=== PATIENT | female | born 1940 | race Caucasian/White ===

== ENCOUNTER 2016-10-28 10:52 | Outpatient (CLI) | payer OTHER, MEDICARE ==
--- NOTE | 2016-10-29 13:18 | Mammography Report ---
DIGITAL SCREENING MAMMOGRAM: 10/28/2016 CLINICAL INDICATION: A 76-year-old with family history of breast cancer for screening. COMPARISON: 10/2015, 10/2014, 10/2013, 10/2012, 09/2011, 03/2010, 11/2008, 11/2006. TECHNIQUE: Routine CC and MLO projections were obtained of the breasts as well as bilateral laterall y exaggerated craniocaudal views. FINDINGS: The breasts again demonstrate heterogeneously dense fibroglandular parenchyma bilaterally. Coarse and punctate, typically benign calcifications are present. No suspicious masses, clustered microcalcifications, or regions of architectural distortion are identified. IMPRESSION: BENIGN FINDINGS. RECOMMENDATION: Routine annual screening unless otherwise clinically indicated. BIRADS CATEGORY 2 - BENIGN FINDINGS. STANDARD QUALIFYING STATEMENTS 1. This examination was reviewed with the aid of Computer-Aided Detection (CAD). 2. A negative or benign imaging report should not delay biopsy if clinically suspicious findings are present. Consider surgical consultation if warranted. More than 5% of cancers are not identified by i maging. 3. Dense breasts may obscure an underlying neoplasm. JOB #: [id number] EXT JOB #:[id number]
== END 2016-10-28 10:53 | disposition home or self-care (01) ==
LOC: DI 10:52
PROVIDERS: ATTEND Obstetrics & Gynecology
DX: Z12.31 Encounter for screening mammogram for malignant neoplasm of breast (principal); Z80.3 Family history of malignant neoplasm of breast
CPT/HCPCS: 77067

== ENCOUNTER 2017-04-08 15:16 | Outpatient (CLI) | payer OTHER, MEDICARE ==
[2017-04-08 18:10] LABS: BASOPHILS % (AUTO) 0.4 %; EOSINOPHILS # (AUTO) 0.2 10^3/uL (0.0-0.7); EOSINOPHILS % (AUTO) 2.5 %; HGB - HEMOGLOBIN 13.4 g/dL (12.0-16.0); LYMPHOCYTES # (AUTO) 1.2 10^3/uL (1.5-3.5); LYMPHOCYTES % (AUTO) 16.4 %; MEAN CORPUSCULAR HEMOGLOBIN 31.1 pg (27.0-31.0); MEAN CORPUSCULAR HGB CONC 33.5 g/dL (32.0-36.0); MEAN CORPUSCULAR VOLUME 92.8 fL (81.0-99.0); MEAN PLATELET VOLUME 8.8 fL (7.9-10.8); MONOCYTES % (AUTO) 13.5 %; NEUTROPHILS # (AUTO) 5.1 10^3/uL (1.5-6.6); NEUTROPHILS % (AUTO) 67.2 %; RED BLOOD COUNT 4.31 10^6/uL (4.20-5.40); RED CELL DISTRIBUTION WIDTH 12.8 % (12.0-15.0); UNCORRECTED WHITE BLOOD COUNT 7.6 x10^3/uL; WHITE BLOOD COUNT 7.6 x10^3/uL (4.8-10.8)
[2017-04-08 18:22] LABS: ALBUMIN/GLOBULIN RATIO 1.6 (1.0-2.2); BILIRUBIN,TOTAL 0.5 mg/dL (0.2-1.0); CALCIUM 8.9 mg/dL (8.5-10.3); CREATININE 0.7 mg/dL (0.4-1.0); POTASSIUM 4.2 mmol/L (3.5-5.0); TOTAL PROTEIN 6.8 g/dL (6.7-8.2)
== END 2017-04-08 15:17 | disposition home or self-care (01) ==
LOC: LAB.F 15:16
PROVIDERS: ATTEND Physician Assistant Medical
DX: I10 Essential (primary) hypertension (principal)
CPT/HCPCS: 36415; 80053; 85025

== ENCOUNTER 2017-04-12 12:54 | Outpatient (CLI) | payer OTHER, MEDICARE ==
[2017-04-12 18:20] LABS: AMYLASE 62 U/L (28-100); LIPASE 29 U/L (22-51)
== END 2017-04-12 12:55 | disposition home or self-care (01) ==
LOC: LAB.F 12:54
PROVIDERS: ATTEND Physician Assistant Medical
DX: R10.9 Unspecified abdominal pain (principal)
CPT/HCPCS: 36415; 82150; 83690; 84443

== ENCOUNTER 2017-04-13 15:17 | Outpatient (CLI) | payer OTHER, MEDICARE ==
[2017-04-13 18:51] LABS: H. PYLORIS ANTIGEN STL NEGATIVE (Negative)
== END 2017-04-13 15:18 | disposition home or self-care (01) ==
LOC: LAB.R 15:17
PROVIDERS: ATTEND Physician Assistant Medical
DX: R19.7 Diarrhea, unspecified (principal)
CPT/HCPCS: 81599; 82270; 87045; 87046; 87177; 87209; 87329; 87338

== ENCOUNTER 2017-04-15 08:00 | Outpatient (CLI) | payer OTHER, MEDICARE | END 2017-04-15 08:01 | disposition home or self-care (01) | LOC: LAB.R 08:00 | DX: R19.7 Diarrhea, unspecified (principal) | CPT/HCPCS: 82270 ==

== ENCOUNTER 2017-05-24 14:59 | Outpatient (CLI) | payer OTHER, MEDICARE ==
[2017-05-24 17:41] LABS: BILIRUBIN,URINE NEGATIVE (NEGATIVE); GLUCOSE, URINE (UA) NEGATIVE (NEGATIVE); KETONES,URINE (UA) NEGATIVE (NEGATIVE); LEUKOCYTE ESTERASE, URINE NEGATIVE (NEGATIVE); NITRITE,URINE NEGATIVE (NEGATIVE); OCCULT BLOOD,URINE NEGATIVE (NEGATIVE); PROTEIN,URINE NEGATIVE (NEGATIVE); UROBILINOGEN,URINE 0.2 (NORMAL) E.U./dL (NORMAL)
[2017-05-24 17:46] LABS: CLARITY,URINE CLEAR (CLEAR)
[2017-05-24 18:00] LABS: BACTERIA,URINE Rare /HPF (None Seen); MUCUS,URINE Few Strands; RBC,URINE 0-5 /HPF (0-5); SQUAMOUS EPITHELIAL CELL,UR FEW Squamous (<= Few)
[2017-05-25 12:28] LABS: BASOPHILS # (AUTO) 0.1 10^3/uL (0.0-0.1); BASOPHILS % (AUTO) 1.2 %; EOSINOPHILS # (AUTO) 0.2 10^3/uL (0.0-0.7); EOSINOPHILS % (AUTO) 2.9 %; HGB - HEMOGLOBIN 12.6 g/dL (12.0-16.0); LYMPHOCYTES % (AUTO) 15.4 %; MEAN CORPUSCULAR HEMOGLOBIN 31.5 pg (27.0-31.0); MEAN CORPUSCULAR HGB CONC 35.4 g/dL (32.0-36.0); MEAN CORPUSCULAR VOLUME 88.9 fL (81.0-99.0); MEAN PLATELET VOLUME 8.2 fL (7.9-10.8); MONOCYTES # (AUTO) 0.9 10^3/uL (0.0-1.0); MONOCYTES % (AUTO) 13.7 %; NEUTROPHILS # (AUTO) 4.5 10^3/uL (1.5-6.6); NEUTROPHILS % (AUTO) 66.8 %; PLT - PLATELET COUNT 199 10^3/uL (130-450); RED BLOOD COUNT 3.99 10^6/uL (4.20-5.40); RED CELL DISTRIBUTION WIDTH 13.3 % (12.0-15.0); WHITE BLOOD COUNT 6.8 x10^3/uL (4.8-10.8)
[2017-05-25 12:42] LABS: ALBUMIN 3.8 g/dL (3.2-5.5); ALBUMIN/GLOBULIN RATIO 1.6 (1.0-2.2); BILIRUBIN,TOTAL 0.4 mg/dL (0.2-1.0); CALCIUM 8.7 mg/dL (8.5-10.3); CREATININE 0.6 mg/dL (0.4-1.0); TOTAL PROTEIN 6.2 g/dL (6.7-8.2)
== END 2017-05-24 15:00 | disposition home or self-care (01) ==
LOC: LAB.F 14:59
PROVIDERS: ATTEND Physician Assistant Medical
DX: Z00.00 Encounter for general adult medical examination without abnormal findings (principal); R19.7 Diarrhea, unspecified; R63.4 Abnormal weight loss; J44.9 Chronic obstructive pulmonary disease, unspecified; I10 Essential (primary) hypertension; Z79.899 Other long term (current) drug therapy
CPT/HCPCS: 36415; 80053; 81001; 85025

== ENCOUNTER 2017-06-01 08:00 | Outpatient (CLI) | payer MEDICARE, OTHER | END 2017-06-01 08:01 | disposition home or self-care (01) | LOC: LAB.R 08:00 | PROVIDERS: ATTEND Internal Medicine Gastroenterology | DX: R19.7 Diarrhea, unspecified (principal) | CPT/HCPCS: 87493 ==

== ENCOUNTER 2017-06-23 12:34 | Emergency (ER) | payer OTHER, MEDICARE ==
--- NOTE | 2017-06-23 15:31 | ED Physician Documentation ---
PD HPI ABD PAIN - Stated complaint Stated Complaint: ABD PX/BLACK STOOL - Chief complaint Chief Complaint: Abd Pain - History obtained from History obtained from: Patient, Family - History of Present Illness Timing - onset: Other (She has had ongoing diarrhea for the last 4 months or so. It sounds like she has had a pretty good outpatient workup including stool culture and a colonoscopy which was negative except for polyps. Last night she took Pepto-Bismol and today she noticed dark stools and was worried that she might have internal bleeding. No new symptoms.) Review of Systems Constitutional: reports: Weight Loss. denies: Fever, Chills Respiratory: denies: Dyspnea, Cough GI: reports: Diarrhea, Bloody / black stool. denies: Nausea, Vomiting PD PAST MEDICAL HISTORY - Past Medical History Past Medical History: Yes Cardiovascular: Hypertension Respiratory: COPD - Present Medications Home Medications: Ambulatory Orders Medication Instructions Recorded Confirmed Atenolol 50 mg PO DAILY 06/23/17 Beclomethasone 80 Mcg [Qvar 80] 06/23/17 Cholestyramine [Questran] 4 gm PO BID PRN #20 packet 06/23/17 Doxazosin [Cardura] 8 mg PO DAILY PM 06/23/17 Famotidine 20 mg PO BID 06/23/17 Furosemide 40 mg PO DAILY 06/23/17 Quinapril HCl 06/23/17 amLODIPine [Norvasc] 5 mg PO DAILY 06/23/17 - Allergies Allergies/Adverse Reactions: Allergies Allergy/AdvReac Type Severity Reaction Status Date / Time aluminum Allergy Unknown Verified 06/23/17 12:49 amoxicillin Allergy Anaphylaxis Verified 06/23/17 12:47 Penicillins Allergy Anaphylaxis Verified 06/23/17 12:47 - Social History Does the pt smoke?: No Smoking Status: Never smoker PD ED PE NORMAL - Vitals Vital signs reviewed: Yes - General General: Alert and oriented X 3, No acute distress - Abdomen Abdomen: Soft, Non tender - Female Female : Forensic Medical Examiner present (Soraya thomas), Other (Dark but guaiac negative stool) - Neuro Neuro: Alert and oriented X 3, Normal speech Results - Vitals Vitals: Vital Signs - 24 hr 06/23/17 12:43 Temperature 36.2 C L Heart Rate 73 Respiratory 17 Rate Blood Pressure 151/61 H O2 Saturation 99 Oxygen O2 Source Room air PD MEDICAL DECISION MAKING - ED course ED course: She presents with a concern for GI bleeding in the setting of ongoing symptoms that have been worked up. She is guaiac negative suggesting that the dark stool is from the Pepto-Bismol. Departure - Departure Disposition: 01 Home, Self Care Clinical Impression: Diarrhea Qualifiers: Diarrhea type: unspecified type Qualified Code(s): R19.7 - Diarrhea, unspecified Condition: Good Record reviewed to determine appropriate education?: Yes Instructions: ED Diet Vomiting Diarrhea Prescriptions: Cholestyramine [Questran] 4 gm PO BID PRN #20 packet PRN Reason: Diarrhea Comments: Call your doctor to arrange a follow-up appointment, make the next available appointment. In the interim, return anytime if worse or if new symptoms develop. Your blood pressure was elevated today on check into the emergency department. This does not mean that you have hypertension, it is a common phenomenon to come to the emergency department and have elevated blood pressure. I recommend that you see your primary care physician within the week to have it rechecked when you are feeling better.
[2017-06-23 15:41] LABS: BASOPHILS % (AUTO) 0.5 %; EOSINOPHILS # (AUTO) 0.1 10^3/uL (0.0-0.7); EOSINOPHILS % (AUTO) 1.5 %; HGB - HEMOGLOBIN 13.4 g/dL (12.0-16.0); LYMPHOCYTES # (AUTO) 1.5 10^3/uL (1.5-3.5); LYMPHOCYTES % (AUTO) 17.7 %; MEAN CORPUSCULAR HEMOGLOBIN 30.4 pg (27.0-31.0); MEAN CORPUSCULAR HGB CONC 33.1 g/dL (32.0-36.0); MEAN CORPUSCULAR VOLUME 91.7 fL (81.0-99.0); MEAN PLATELET VOLUME 7.7 fL (7.9-10.8); MONOCYTES # (AUTO) 1.1 10^3/uL (0.0-1.0); MONOCYTES % (AUTO) 13.1 %; NEUTROPHILS # (AUTO) 5.8 10^3/uL (1.5-6.6); NEUTROPHILS % (AUTO) 67.2 %; PLT - PLATELET COUNT 235 10^3/uL (130-450); RED BLOOD COUNT 4.42 10^6/uL (4.20-5.40); RED CELL DISTRIBUTION WIDTH 13.4 % (12.0-15.0); WHITE BLOOD COUNT 8.6 x10^3/uL (4.8-10.8)
[2017-06-23 15:50] VITALS: BP 109/78
== END 2017-06-23 15:47 | disposition home or self-care (01) ==
LOC: ED 12:34
DX: R19.7 Diarrhea, unspecified (principal); I10 Essential (primary) hypertension
CPT/HCPCS: 36415; 85025; 99283

== ENCOUNTER 2018-05-09 12:34 | Outpatient (CLI) | payer OTHER, MEDICARE ==
[2018-05-09 17:26] LABS: BASOPHILS % (AUTO) 0.4 %; EOSINOPHILS # (AUTO) 0.2 10^3/uL (0.0-0.7); EOSINOPHILS % (AUTO) 2.1 %; LYMPHOCYTES # (AUTO) 1.2 10^3/uL (1.5-3.5); LYMPHOCYTES % (AUTO) 16.1 %; MEAN CORPUSCULAR HEMOGLOBIN 31.4 pg (27.0-31.0); MEAN CORPUSCULAR HGB CONC 32.8 g/dL (32.0-36.0); MEAN CORPUSCULAR VOLUME 95.6 fL (81.0-99.0); MEAN PLATELET VOLUME 8.6 fL (7.9-10.8); MONOCYTES # (AUTO) 1.1 10^3/uL (0.0-1.0); MONOCYTES % (AUTO) 14.3 %; NEUTROPHILS # (AUTO) 5.1 10^3/uL (1.5-6.6); NEUTROPHILS % (AUTO) 67.1 %; PLT - PLATELET COUNT 207 10^3/uL (130-450); RED BLOOD COUNT 4.15 10^6/uL (4.20-5.40); RED CELL DISTRIBUTION WIDTH 13.4 % (12.0-15.0); WHITE BLOOD COUNT 7.7 x10^3/uL (4.8-10.8)
[2018-05-09 17:33] LABS: ALBUMIN 3.8 g/dL (3.2-5.5); ALBUMIN/GLOBULIN RATIO 1.3 (1.0-2.2); BILIRUBIN,TOTAL 0.6 mg/dL (0.2-1.0); CALCIUM 8.9 mg/dL (8.5-10.3); CREATININE 0.7 mg/dL (0.4-1.0); TOTAL PROTEIN 6.7 g/dL (6.7-8.2)
== END 2018-05-09 23:59 | disposition home or self-care (01) ==
LOC: LAB.F 12:34
PROVIDERS: ATTEND Physician Assistant Medical
DX: I10 Essential (primary) hypertension (principal)
CPT/HCPCS: 36415; 80053; 85025

== ENCOUNTER 2018-05-11 10:24 | Outpatient (CLI) | payer OTHER, MEDICARE ==
--- NOTE | 2018-05-11 15:35 | DEXA Report ---
Reason: POSTMENOPAUSAL STATUS Procedure Date: 05/11/2018 Accession Number: [id number] / [id number] Procedure: DEX - Dexa Spine and/or Hip CPT Code: FULL RESULT: EXAM: Dexa Spine and/or Hip DATE: 05/11/2018 10:59 AM CLINICAL HISTORY: POSTMENOPAUSAL STATUS TECHNIQUE: Dual energy x-ray absorptiometry (DXA) was performed on a [employer] System. Regions measured are the AP Spine, femoral neck, and if needed forearm. COMPARISON: None. In accordance with the International Society for Clinical Densitometry (ISCD) guidelines, data from previous exams may be reanalyzed using current recommendations and techniques. This is done to allow a more accurate basis for comparison with the current study. FINDINGS: The data for the lumbar spine is as follows: BMD (g/cm/cm) T-SCORE Z-SCORE REGION L1 0.885 -2.0 0.2 L2 1.116 -0.7 1.6 L3 1.221 0.2 2.5 L4 0.978 -1.8 0.4 TOTAL 1.055 -1.0 1.3 NOTE: All evaluable vertebrae are used for classification The data for the hip is as follows: BMD (g/cm/cm) T-SCORE Z-SCORE REGION Neck 0.683 -2.6 -0.1 TOTAL 0.762 -2.0 0.4 NOTE: The femoral neck or total proximal femur, whichever is lowest, is used for classification. IMPRESSION: THE WHO CLASSIFICATION BASED ON THE INTERNATIONAL REFERENCE STANDARD IS OSTEOPOROSIS. THE FRACTURE RISK IS HIGH. RECOMMENDATION: Patients with diagnosis of osteoporosis or osteopenia should have regular bone mineral density assessment. For those eligible for Medicare, routine testing is allowed once every 2 years. Testing frequency can be increased for patients who have rapidly progressing disease or for those who are receiving medical therapy to restore bone mass. COMMENT: World Health Organization (WHO) definitions for osteoporosis and osteopenia: NORMAL BMD: T-score at -1.0 or higher, fracture risk is low OSTEOPENIA BMD: T-score between -1.0 and -2.5, fracture risk is increased. OSTEOPOROSIS BMD: T-score at -2.5 or lower, fracture risk is high. National Osteoporosis Foundation recommends: 1. Obtain adequate dietary calcium (at least 1200 mg per day) and vitamin D (400-800 international units per day). 2. Participate, as appropriate, in regular weightbearing and muscle-strengthening exercise. 3. Avoid tobacco use and reduce alcohol and caffeine intake. 4. For more detailed information see the website at www.NOF.org.
== END 2018-05-11 10:25 | disposition home or self-care (01) ==
LOC: DI 10:24
PROVIDERS: ATTEND Physician Assistant Medical
DX: M81.0 Age-related osteoporosis without current pathological fracture (principal); Z78.0 Asymptomatic menopausal state
CPT/HCPCS: 77080

== ENCOUNTER 2018-09-28 11:19 | Outpatient (CLI) | payer OTHER, MEDICARE ==
--- NOTE | 2018-09-29 08:46 | Mammography Report ---
Reason: SCREENING MAMMOGRAM NEC Procedure Date: 09/28/2018 Accession Number: [id number] / [id number] Procedure: MARCY - Screening Mammo w/Jt CPT Code: FULL RESULT: EXAM: Screening Mammo w/Jt DATE: 09/28/2018 12:38 PM CLINICAL HISTORY: Screening encounter. Family history of breast cancer in the mother at the age of 68. TECHNIQUE: (B) - Bilateral CC, laterally exaggerated CC, MLO views were obtained. COMPARISON: 10/28/2016 through 11/06/2013. PARENCHYMAL PATTERN: (D) - The breast(s) demonstrate(s) heterogeneously dense fibroglandular parenchyma. FINDINGS: In the left inferior breast, 3 cm from the nipple, on MLO image 14 is a 1.5 cm partially obscured mass which has been increasing in prominence over time and is now clearly delineated on 3-D images, 6:00 position. This requires additional imaging by spot views and ultrasound for clarification. There are coarse typically benign calcifications. There are no suspicious masses, calcifications, or areas of distortion in the right breast. IMPRESSION: Incomplete examination. BI-RADS category 0. RECOMMENDATION: ([facility]) - Additional views using both Mammography and Ultrasound recommended. BI-RADS CATEGORY: (0) - Incomplete Examination - need additional evaluation. STANDARD QUALIFYING STATEMENTS: 1. This examination was not reviewed with the aid of Computer-Aided Detection (CAD). 2. A negative or benign imaging report should not preclude biopsy if clinically suspicious findings are present. 3. Dense breasts may obscure an underlying neoplasm. 4. This examination was reviewed with the aid of 3D breast imaging (tomosynthesis).
== END 2018-09-28 11:20 | disposition home or self-care (01) ==
LOC: DI 11:19
PROVIDERS: ATTEND Physician Assistant Medical
DX: Z12.31 Encounter for screening mammogram for malignant neoplasm of breast (principal); R92.8 Other abnormal and inconclusive findings on diagnostic imaging of breast; Z80.3 Family history of malignant neoplasm of breast
CPT/HCPCS: 77063; 77067

== ENCOUNTER 2018-10-06 10:26 | Outpatient (CLI) | payer OTHER, MEDICARE ==
--- NOTE | 2018-10-06 11:42 | Mammography Report ---
Reason: ABNORMAL MAMMOGRAM Procedure Date: 10/06/2018 Accession Number: [id number] / [id number] Procedure: MARCY - Diag Special Views Dig LT CPT Code: FULL RESULT: EXAM: Diag Special Views Dig LT; targeted left breast ultrasound. DATE: 10/06/2018 11:02 AM CLINICAL HISTORY: Callback left breast for indeterminate inferior left breast asymmetry TECHNIQUE: (L) - Left. CC and MLO views were obtained. Then, targeted left breast ultrasound was performed. COMPARISON: 09/28/2018, 10/28/2016 PARENCHYMAL PATTERN: (A) - The breasts demonstrate scattered fibroglandular densities bilaterally. FINDINGS: Additional compression spot views reveal no definite abnormality. Targeted ultrasound is also negative. There are no suspicious masses, calcifications, or areas of distortion. IMPRESSION: Negative examination. BI-RADS category 1. RECOMMENDATION: (ANNUAL) - Recommend routine annual screening mammography. BI-RADS CATEGORY: (1) - Negative. STANDARD QUALIFYING STATEMENTS: 1. This examination was not reviewed with the aid of Computer-Aided Detection (CAD). 2. A negative or benign imaging report should not preclude biopsy if clinically suspicious findings are present. 3. Dense breasts may obscure an underlying neoplasm. 4. This examination was reviewed with the aid of 3D breast imaging (tomosynthesis).
== END 2018-10-06 10:27 | disposition home or self-care (01) ==
LOC: DI 10:26
PROVIDERS: ATTEND Physician Assistant Medical
DX: Z12.31 Encounter for screening mammogram for malignant neoplasm of breast (principal)
CPT/HCPCS: 76642

== ENCOUNTER 2019-07-02 05:12 | Emergency (ER) | payer OTHER, MEDICARE ==
[2019-07-02] MEDS ORDERED: DEXAMETHASONE 10 MG/ML VIAL IV STA (05:34)
[2019-07-02] MEDS ORDERED: IPRATROPIUM/ALBUTEROL 3 ML NEB INH STA (05:34)
[2019-07-02 05:44] LABS: BASOPHILS % (AUTO) 0.1 %; EOSINOPHILS % (AUTO) 0.2 %; HGB - HEMOGLOBIN 13.7 g/dL (12.0-16.0); LYMPHOCYTES # (AUTO) 0.4 10^3/uL (1.5-3.5); LYMPHOCYTES % (AUTO) 4.9 %; MEAN CORPUSCULAR HEMOGLOBIN 29.9 pg (27.0-31.0); MEAN CORPUSCULAR HGB CONC 32.9 g/dL (32.0-36.0); MEAN CORPUSCULAR VOLUME 90.8 fL (81.0-99.0); MEAN PLATELET VOLUME 9.8 fL (7.9-10.8); MONOCYTES # (AUTO) 1.3 10^3/uL (0.0-1.0); MONOCYTES % (AUTO) 14.7 %; NEUTROPHILS % (AUTO) 79.8 %; PLT - PLATELET COUNT 176 10^3/uL (130-450); RED BLOOD COUNT 4.58 10^6/uL (4.20-5.40); RED CELL DISTRIBUTION WIDTH 12.4 % (12.0-15.0); WHITE BLOOD COUNT 8.8 x10^3/uL (4.8-10.8)
--- NOTE | 2019-07-02 05:48 | ED Physician Documentation ---
History of Present Illness - Stated complaint Stated Complaint: CP/SOA - Chief complaint Chief Complaint: Cardiac - History obtained from History obtained from: Patient - Additonal information Additional information: I think comes emergency department complaining of shortness of breath that started yesterday. Patient states it got gradually worse over the course of the day, but that especially overnight, she began to notice she was having significant difficulty breathing. Patient states she has a history of COPD but was never a smoker. She does have a nebulizer machine at home, but did not take a nebulizer treatment before coming. She states she had 1 once yesterday and then it was somewhat helpful but not completely. Patient has no cardiac history including congestive heart failure. Patient denies any pain in her chest except when she takes deep breath. She has been coughing but not more than usual. No fevers. No other complaints at this time. Review of Systems Ten Systems: 10 systems reviewed and negative Constitutional: reports: Reviewed and negative Eyes: reports: Reviewed and negative Ears: reports: Reviewed and negative Nose: reports: Reviewed and negative Throat: reports: Reviewed and negative Cardiac: reports: Reviewed and negative Respiratory: reports: Dyspnea, Cough GI: reports: Reviewed and negative : reports: Reviewed and negative Skin: reports: Reviewed and negative Musculoskeletal: reports: Reviewed and negative Neurologic: reports: Reviewed and negative Psychiatric: reports: Reviewed and negative Endocrine: reports: Reviewed and negative Immunocompromised: reports: Reviewed and negative PD PAST MEDICAL HISTORY - Past Medical History Cardiovascular: Hypertension Respiratory: COPD : Other Other Past Medical History: prolapsed bladder - Past Surgical History Past Surgical History: Yes General: Appendectomy, Colonoscopy /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: 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 HEENT: Cataracts - Present Medications Home Medications: Ambulatory Orders Medication Instructions Recorded Confirmed Beclomethasone 80 Mcg [Qvar 80] 06/23/17 Cholestyramine [Questran] 4 gm PO BID PRN #20 packet 06/23/17 Doxazosin [Cardura] 8 mg PO DAILY PM 06/23/17 Famotidine 20 mg PO BID 06/23/17 Furosemide 40 mg PO DAILY 06/23/17 Quinapril HCl 06/23/17 amLODIPine [Norvasc] 5 mg PO DAILY 06/23/17 atenoloL [Atenolol] 50 mg PO DAILY 06/23/17 Albuterol 2.5 mg INH Q4H PRN #30 neb 07/02/19 predniSONE [Prednisone] 60 mg PO DAILY #15 tablet 07/02/19 - Allergies Allergies/Adverse Reactions: Allergies Allergy/AdvReac Type Severity Reaction Status Date / Time aluminum Allergy Unknown Verified 07/02/19 05:16 amoxicillin Allergy Anaphylaxis Verified 07/02/19 05:16 Penicillins Allergy Anaphylaxis Verified 07/02/19 05:16 - Social History Does the pt smoke?: No Smoking Status: Never smoker Does the pt drink ETOH?: No Does the pt have substance abuse?: No - Immunizations Immunizations are current?: Yes PD ED PE NORMAL - Vitals Vital signs reviewed: Yes - General General: Alert and oriented X 3, No acute distress - HEENT HEENT: Atraumatic, PERRL, EOMI, Moist mucous membranes - Neck Neck: Supple, no meningeal sign - Cardiac Cardiac: RRR, No murmur - Respiratory Respiratory: No respiratory distress, Clear bilaterally, Other (Patient has mildly labored respirations, but can speak in full sentences.) - Abdomen Abdomen: Normal bowel sounds, Soft, Non tender, Non distended - Derm Derm: Warm and dry - Extremities Extremities: No deformity - Neuro Neuro: Alert and oriented X 3 - Psych Psych: Normal mood, Normal affect Results - Vitals Vitals: Vital Signs - 24 hr 07/02/19 07/02/19 07/02/19 05:17 05:35 05:51 Temperature 36.7 C Heart Rate 96 88 Respiratory 20 20 Rate Blood Pressure 179/84 H Blood Pressure 188/94 H [Right] O2 Saturation 99 07/02/19 07/02/19 07/02/19 05:53 06:00 06:30 Temperature Heart Rate 85 97 92 Respiratory 20 22 20 Rate Blood Pressure 173/79 H 157/70 H 147/68 H Blood Pressure [Right] O2 Saturation 100 94 92 Oxygen O2 Source Room air - EKG (time done) 0526 Rate: Rate (enter#) (93) Rhythm: Atrial fibrillation [place]: Normal QRS: Normal Ischemia: ST depression Compare to prior EKG: Old EKG unavailable Computer interpretation: Agree with computer - Labs Labs: Laboratory Tests 07/02/19 07/02/19 07/02/19 05:35 05:35 05:35 WBC 8.8 RBC 4.58 Hgb 13.7 Hct 41.6 MCV 90.8 MCH 29.9 MCHC 32.9 RDW 12.4 Plt Count 176 MPV 9.8 Neut # (Auto) 7.0 H Lymph # (Auto) 0.4 L [place] # (Auto) 1.3 H Eos # (Auto) 0.0 Baso # (Auto) 0.0 Absolute Nucleated RBC 0.00 Nucleated RBC % 0.0 PT 13.0 H INR 1.2 Sodium 130 L Potassium 3.0 L Chloride 94 L Carbon Dioxide 26 Anion Gap 10.0 BUN 13 Creatinine 0.5 Estimated GFR (MDRD) 118 Glucose 135 H Calcium 8.5 Total Bilirubin 0.6 AST 22 ALT 19 Alkaline Phosphatase 65 Troponin I High Sens B-Natriuretic Peptide Total Protein 7.5 Albumin 4.5 Globulin 3.0 Albumin/Globulin Ratio 1.5 Lipase 43 07/02/19 07/02/19 05:35 05:35 WBC RBC Hgb Hct MCV MCH MCHC RDW Plt Count MPV Neut # (Auto) Lymph # (Auto) Sc[place] # (Auto) Eos # (Auto) Baso # (Auto) Absolute Nucleated RBC Nucleated RBC % PT INR Sodium Potassium Chloride Carbon Dioxide Anion Gap BUN Creatinine Estimated GFR (MDRD) Glucose Calcium Total Bilirubin AST ALT Alkaline Phosphatase Troponin I High Sens 7.0 B-Natriuretic Peptide 212 H Total Protein Albumin Globulin Albumin/Globulin Ratio Lipase - Rads (name of study) cxr Radiology: Final report received, EMP read indepedently, See rad report PD MEDICAL DECISION MAKING - ED course Complexity details: reviewed results, re-evaluated patient, considered differential, d/w patient, d/w family ED course: The patient was actually fairly comfortable in appearance, though she did have slightly labored respirations. Given her history of COPD, I did order a DuoNeb for her, as well as a dose of steroids in the emergency department. On reevaluation, the patient was found to be laughing and talking and reported feeling better. She was worked up with labs, EKG, and chest x-ray which were unremarkable, with the exception of a mildly elevated BNP in the 200s. I did discuss with the patient the most likely,Her shortness of breath is secondary to an exacerbation of her COPD. The patient's troponin is normal. I do not find evidence of a DVT on exam or history. I have advised the patient that when she is feeling short of breath, she should be using her nebulizer treatments more aggressively. I have recommended that she use a neb treatment every 4 hours and also, I will place her on a daily steroid for the next 5 days. She has been given prescriptions for more of her Nebules, as well as the prednisone. She is advised to follow-up with her primary care physician as needed. We have discussed the usual indications for return. Departure - Departure Disposition: 01 Home, Self Care Clinical Impression: COPD exacerbation Condition: Fair Instructions: ED COPD Flare Prescriptions: Albuterol 2.5 mg INH Q4H PRN #30 neb PRN Reason: Wheezing predniSONE [Prednisone] 60 mg PO DAILY #15 tablet Comments: Your labs, EKG, and chest x-ray are reassuring. There is no evidence of congestive heart failure, a heart attack, or pneumonia. Your oxygen saturationIs quite good for somebody with COPD. When you are feeling bad like this, it is very important that you take your nebulizer treatments more frequently. You should be taking them every 4 hours during waking hours, until your symptoms calm down. Please take the steroid medication every day for the next 5 days, as well. Discharge Date/Time: 07/02/19 06:45
[2019-07-02 05:50] LABS: INR 1.2 (0.8-1.2)
[2019-07-02 06:00] LABS: ALBUMIN 4.5 g/dL (3.2-5.5); ALBUMIN/GLOBULIN RATIO 1.5 (1.0-2.2); BILIRUBIN,TOTAL 0.6 mg/dL (0.2-1.0); CALCIUM 8.5 mg/dL (8.5-10.3); CREATININE 0.5 mg/dL (0.4-1.0); TOTAL PROTEIN 7.5 g/dL (6.7-8.2)
--- NOTE | 2019-07-02 06:01 | XRAY Report ---
Reason: chest pain Procedure Date: 07/02/2019 Accession Number: [id number] / [id number] Procedure: XR - Chest 1 View X-Ray CPT Code: 08406 Final Report FULL RESULT: EXAM: CHEST RADIOGRAPHY EXAM DATE: 07/02/2019 05:49 AM. CLINICAL HISTORY: Productive cough COMPARISON: XR CHEST PA AND LAT 09/23/2011 2:27 PM. TECHNIQUE: 1 view. FINDINGS: Atherosclerotic plaque calcifications are seen in the aorta. The mediastinal and cardiac silhouettes are normal. There is no focal consolidation, pleural effusion, or pneumothorax. The osseous structures are intact. IMPRESSION: No focal consolidation. RADIA
[2019-07-02 06:48] VITALS: BP 147/68
== END 2019-07-02 06:45 | disposition home or self-care (01) ==
LOC: ED 05:12
DX: J44.1 Chronic obstructive pulmonary disease with (acute) exacerbation (principal); I48.91 Unspecified atrial fibrillation; I10 Essential (primary) hypertension
CPT/HCPCS: 36415; 71045; 80053; 83690; 83880; 84484; 85025; 85610; 93005; 94640; 99284

== ENCOUNTER 2019-08-06 15:06 | Emergency (ER) | payer OTHER, MEDICARE ==
[2019-08-06] MEDS ORDERED: IPRATROPIUM/ALBUTEROL 3 ML NEB INH STA (15:19)
--- NOTE | 2019-08-06 15:22 | ED Physician Documentation ---
PD HPI DYSPNEA - Stated complaint Stated Complaint: SOB - Chief complaint Chief Complaint: Resp - History obtained from History obtained from: Patient (This is a sarah 79-year-old woman with history of COPD who is had shortness of breath and chest burning. She is a little vague on the timing, saying it is been present since the last time she was here, review of the chart shows she was last year on July 01 for diagnosis of COPD exacerbation at which time she received a course of steroids. She says that she has shortness of breath all the time especially with exertion and especially at night. She does have some orthopnea. She has chronic pedal edema of the right ankle, she does not know why it is asymmetric but says it is not new. She denies history of heart disease or blood clots. Just the COPD for the most part. She does have a cough which is minimally productive. She called telehealth provider provider prior to arrival I guess and there was some concern for coronavirus although the timing, lack of fevers and sort of subacute cough would suggest that this is more of a standard COPD exacerbation.) Review of Systems Ten Systems: 10 systems reviewed and negative Constitutional: denies: Fever, Chills Cardiac: reports: Chest pain / pressure (Burning anterior and right side, not new), Pedal edema. 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 HEENT: Cataracts - Present Medications Home Medications: Ambulatory Orders Medication Instructions Recorded Confirmed Beclomethasone 80 Mcg [Qvar 80] 06/23/17 Cholestyramine [Questran] 4 gm PO BID PRN #20 packet 06/23/17 Doxazosin [Cardura] 8 mg PO DAILY PM 06/23/17 Famotidine 20 mg PO BID 06/23/17 Furosemide 40 mg PO DAILY 06/23/17 Quinapril HCl 06/23/17 amLODIPine [Norvasc] 5 mg PO DAILY 06/23/17 atenoloL [Atenolol] 50 mg PO DAILY 06/23/17 Albuterol 2.5 mg INH Q4H PRN #30 neb 07/02/19 predniSONE [Prednisone] 60 mg PO DAILY #15 tablet 07/02/19 Doxycycline Hyclate 100 mg PO BID #14 capsule 08/06/19 predniSONE [Deltasone] 20 mg PO [id number] #21 tab 08/06/19 - Allergies Allergies/Adverse Reactions: Allergies Allergy/AdvReac Type Severity Reaction Status Date / Time aluminum Allergy Unknown Verified 08/06/19 15:14 amoxicillin Allergy Anaphylaxis Verified 08/06/19 15:14 Penicillins Allergy Anaphylaxis Verified 08/06/19 15:14 - Social History Does the pt smoke?: No Smoking Status: Never smoker Does the pt drink ETOH?: No Does the pt have substance abuse?: No - Immunizations Immunizations are current?: Yes PD ED PE NORMAL - Vitals Vital signs reviewed: Yes - General General: Alert and oriented X 3, No acute distress - HEENT HEENT: PERRL, EOMI - Neck Neck: Supple, no meningeal sign, No bony TTP - Cardiac Cardiac: RRR, No murmur - Respiratory Respiratory: Other (Diminished throughout, slightly tachypneic but speaking in full sentences.) - Abdomen Abdomen: Soft, Non tender - Back Back: No CVA TTP, No spinal TTP - Derm Derm: Normal color, Warm and dry - Extremities Extremities: Other (Significant asymmetric edema of the right leg compared with the left, nontender.) - Neuro Neuro: Alert and oriented X 3, Normal speech Results - Vitals Vitals: Vital Signs - 24 hr 08/06/19 08/06/19 08/06/19 15:14 15:37 15:51 Temperature 36.7 C Heart Rate 73 63 67 Respiratory 24 18 16 Rate Blood Pressure 202/91 H 188/83 H O2 Saturation 99 97 08/06/19 08/06/19 16:43 17:50 Temperature Heart Rate 74 69 Respiratory Rate Blood Pressure 161/85 H 132/71 H O2 Saturation 97 97 Oxygen O2 Source Room air - EKG (time done) 1533 Rate: Rate (enter#) (60) Rhythm: NSR [place]: Normal QRS: Normal Ischemia: Other (There are Q waves in V1 V2 with sub-millimeter ST depression in V5 and V6. Compared to last EKG on file dated July 02, 2019, there are no changes.) - Labs Labs: Laboratory Tests 08/06/19 08/06/19 08/06/19 15:25 15:25 15:25 WBC 7.8 RBC 4.55 Hgb 13.3 Hct 40.5 MCV 89.0 MCH 29.2 MCHC 32.8 RDW 12.2 Plt Count 235 MPV 9.5 Neut # (Auto) 4.1 Lymph # (Auto) 1.5 [place] # (Auto) 1.4 H Eos # (Auto) 0.8 H Baso # (Auto) 0.0 Absolute Nucleated RBC 0.00 Nucleated RBC % 0.0 Sodium 128 L Potassium 3.8 Chloride 90 L Carbon Dioxide 28 Anion Gap 10.0 BUN 18 Creatinine 0.6 Estimated GFR (MDRD) 96 Glucose 100 Calcium 9.0 Total Bilirubin 1.0 AST 25 ALT 24 Alkaline Phosphatase 73 Troponin I High Sens 4.5 B-Natriuretic Peptide Total Protein 7.4 Albumin 4.3 Globulin 3.1 Albumin/Globulin Ratio 1.4 Lipase 62 H 08/06/19 15:25 WBC RBC Hgb Hct MCV MCH MCHC RDW Plt Count MPV Neut # (Auto) Lymph # (Auto) [place] # (Auto) Eos # (Auto) Baso # (Auto) Absolute Nucleated RBC Nucleated RBC % Sodium Potassium Chloride Carbon Dioxide Anion Gap BUN Creatinine Estimated GFR (MDRD) Glucose Calcium Total Bilirubin AST ALT Alkaline Phosphatase Troponin I High Sens B-Natriuretic Peptide 57 Total Protein Albumin Globulin Albumin/Globulin Ratio Lipase - Rads (name of study) CTA Chest Radiology: EMP read contemporaneously (NAD) PD MEDICAL DECISION MAKING - ED course ED course: This is an 79-year-old woman with history of COPD presents with shortness of breath. Diminished breath sounds which improved after a DuoNeb here. Some concern for coronavirus prehospital, however her findings do not corroborate this. There is no evidence of CHF or coronary insults. She had an asymmetric leg so a CTA of the chest was done but also negative. Departure - Departure Disposition: Home, Self Care Clinical Impression: COPD exacerbation Condition: Good Record reviewed to determine appropriate education?: Yes Instructions: COPD Dc Prescriptions: Doxycycline Hyclate 100 mg PO BID #14 capsule predniSONE [Deltasone] 20 mg PO [id number] #21 tab Comments: There is no evidence of blood clot today. We are checking for coronavirus but given the symptoms and the blood work this is very unlikely. Return for new or worsening symptoms. Follow-up with your primary care physician, next available appointment. The steroids and antibiotics should help until then.
[2019-08-06] MEDS ORDERED: IOVERSOL 320 100 ML VIAL IVP ONE ×2 (15:28→16:49)
[2019-08-06 15:52] LABS: BASOPHILS % (AUTO) 0.4 %; EOSINOPHILS # (AUTO) 0.8 10^3/uL (0.0-0.7); EOSINOPHILS % (AUTO) 10.1 %; HGB - HEMOGLOBIN 13.3 g/dL (12.0-16.0); LYMPHOCYTES # (AUTO) 1.5 10^3/uL (1.5-3.5); LYMPHOCYTES % (AUTO) 19.1 %; MEAN CORPUSCULAR HEMOGLOBIN 29.2 pg (27.0-31.0); MEAN CORPUSCULAR HGB CONC 32.8 g/dL (32.0-36.0); MEAN PLATELET VOLUME 9.5 fL (7.9-10.8); MONOCYTES # (AUTO) 1.4 10^3/uL (0.0-1.0); MONOCYTES % (AUTO) 17.7 %; NEUTROPHILS # (AUTO) 4.1 10^3/uL (1.5-6.6); NEUTROPHILS % (AUTO) 52.4 %; PLT - PLATELET COUNT 235 10^3/uL (130-450); RED BLOOD COUNT 4.55 10^6/uL (4.20-5.40); RED CELL DISTRIBUTION WIDTH 12.2 % (12.0-15.0); WHITE BLOOD COUNT 7.8 x10^3/uL (4.8-10.8)
[2019-08-06 16:04] LABS: ALBUMIN 4.3 g/dL (3.2-5.5); ALBUMIN/GLOBULIN RATIO 1.4 (1.0-2.2); CREATININE 0.6 mg/dL (0.4-1.0); TOTAL PROTEIN 7.4 g/dL (6.7-8.2)
--- NOTE | 2019-08-06 17:54 | CT Report ---
Reason: dyspnea, pe prtocol Procedure Date: 08/06/2019 Accession Number: [id number] / [id number] Procedure: CT - ANGIO CHEST W/WO CPT Code: Final Report FULL RESULT: EXAM: CT ANGIOGRAM CHEST EXAM DATE: 08/06/2019 04:46 PM. CLINICAL HISTORY: Dyspnea, pe prtocol. COMPARISON: None. TECHNIQUE: Routine helical imaging was performed through the chest in the pulmonary arterial phase. IV Contrast: 60 mL Optiray 320. Reconstructions: Coronal 3-D MIP reconstructions. Sagittal and coronal. In accordance with CT protocol optimization, one or more of the following dose reduction techniques were utilized for this exam: automated exposure control, adjustment of mA and/or KV based on patient size, or use of iterative reconstructive technique. FINDINGS: Pulmonary Arteries: Diagnostic quality: Adequate through the segmental arteries. No evidence for acute or chronic pulmonary emboli. There is evidence of right heart strain with retrograde flow of contrast into the IVC and hepatic veins. Lungs/Pleura: No consolidation, nodules, or edema. No effusions or pneumothorax. Mediastinum: Normal. No cardiac enlargement or adenopathy. Thoracic Aorta: Unremarkable. Upper Abdomen: Unremarkable. Other: None. IMPRESSION: 1. No pulmonary emboli. 2. No focal consolidation, pleural effusion or suspicious pulmonary nodules or masses. No lymphadenopathy. RADIA
[2019-08-06] MEDS ORDERED: predniSONE 20 MG TABLET PO STA (17:56)
[2019-08-06] MEDS ORDERED: DOXYCYCLINE 100 MG TABLET PO STA (17:57)
[2019-08-06 18:21] VITALS: BP 157/74
== END 2019-08-06 19:12 | disposition home or self-care (01) ==
LOC: ED 15:06
DX: J44.1 Chronic obstructive pulmonary disease with (acute) exacerbation (principal); I10 Essential (primary) hypertension
CPT/HCPCS: 36415; 71275; 80053; 83690; 83880; 84484; 85025; 87635; 93005; 94640; 99284; A9270; J7512; Q9967; 81599

== ENCOUNTER 2020-02-25 09:42 | Outpatient (CLI) | payer OTHER, MEDICARE ==
--- NOTE | 2020-02-25 17:38 | Ultrasound Report ---
PROCEDURE: Abdomen Complete INDICATIONS: ABDOMINAL PAIN TECHNIQUE: Real-time scanning was performed of the abdominal and retroperitoneal organs, with image documentatio n. COMPARISON: None. FINDINGS: Liver: Liver is normal in size and homogeneous in echotexture. Gallbladder: Bladder demonstrates no stones. Sludge is identified. Wall thickness is within normal li mits measuring 0.6 mm. Biliary ducts: Intrahepatic bile ducts are non-dilated. Extrahepatic bile duct caliber measures 10 point mm. Normal is 6-7 mm or less in diameter, or 10 mm or less post-cholecystectomy. Pancreas: Visualized portions of the pancreas are sonographically normal. Spleen: Spleen is normal in size and homogeneous in echotexture. Kidneys: Kidneys are normal in size and echotexture. Right kidney measures 10.7 cm long; left kidne y measures cm long. No hydronephrosis or nephrolithiasis. No solid masses. Simple cyst is note d within the inferior left renal pole measuring 22 x 29 x 27 mm. Aorta: Visualized aorta is normal in caliber at less than 3 cm. Iliacs: Proximal common iliac arteries are not well seen. IVC: Intrahepatic inferior vena cava is p atent. Miscellaneous: No free abdominal fluid. IMPRESSION: Bladder sludge without wall thickening. Reviewed by: Dinorah Medina MD on 02/25/2020 5:37 PM PST Approved by: Dinorah Medina MD on 02/25/2020 5:37 PM PST Station ID: [id number]
== END 2020-02-25 09:43 | disposition home or self-care (01) ==
LOC: DI 09:42
PROVIDERS: ATTEND Physician Assistant
DX: K82.8 Other specified diseases of gallbladder (principal)
CPT/HCPCS: 76700

== ENCOUNTER 2020-08-22 09:48 | Outpatient (CLI) | payer OTHER, MEDICARE ==
[2020-08-22 10:01] LABS: BASOPHILS % (AUTO) 0.1 %; EOSINOPHILS # (AUTO) 0.9 10^3/uL (0.0-0.7); EOSINOPHILS % (AUTO) 13.3 %; HCT - HEMATOCRIT 42.2 % (37.0-47.0); HGB - HEMOGLOBIN 13.9 g/dL (12.0-16.0); LYMPHOCYTES # (AUTO) 1.1 10^3/uL (1.5-3.5); LYMPHOCYTES % (AUTO) 15.7 %; MEAN CORPUSCULAR HEMOGLOBIN 30.8 pg (27.0-31.0); MEAN CORPUSCULAR HGB CONC 32.9 g/dL (32.0-36.0); MEAN CORPUSCULAR VOLUME 93.4 fL (81.0-99.0); MEAN PLATELET VOLUME 9.3 fL (7.9-10.8); MONOCYTES # (AUTO) 1.1 10^3/uL (0.0-1.0); NEUTROPHILS # (AUTO) 3.6 10^3/uL (1.5-6.6); NEUTROPHILS % (AUTO) 54.5 %; PLT - PLATELET COUNT 209 10^3/uL (130-450); RED BLOOD COUNT 4.52 10^6/uL (4.20-5.40); RED CELL DISTRIBUTION WIDTH 12.6 % (12.0-15.0); WHITE BLOOD COUNT 6.7 x10^3/uL (4.8-10.8)
[2020-08-22 10:20] LABS: ALBUMIN 3.8 g/dL (3.2-5.5); ALBUMIN/GLOBULIN RATIO 1.5 (1.0-2.2); ALKALINE PHOSPHATASE 66 IU/L (42-121); ALT ALANINE AMINOTRANSFERASE 20 IU/L (10-60); AST ASPARTATE AMINOTRANSFERASE 23 IU/L (10-42); BILIRUBIN,TOTAL 0.7 mg/dL (0.2-1.0); BUN - BLOOD UREA NITROGEN 15 mg/dL (6-20); CALCIUM 8.8 mg/dL (8.5-10.3); CARBON DIOXIDE - CO2 31 mmol/L (21-32); CHLORIDE 99 mmol/L (101-111); CHOL/HDL RATIO 3.6 (<4.4); CHOLESTEROL 203 mg/dL; CREATININE 0.7 mg/dL (0.4-1.0); GFR - MDRD 80 (>89); GLUCOSE 95 mg/dL (70-100); HDL CHOLESTEROL 56 mg/dL; LDL CHOLESTEROL,CALCULATED 138 mg/dL; LDL/HDL RATIO 2.5 (<4.4); POTASSIUM 3.6 mmol/L (3.5-5.0); SODIUM 138 mmol/L (135-145); TOTAL PROTEIN 6.4 g/dL (6.7-8.2); TRIGLYCERIDES 45 mg/dL; VLDL CHOLESTEROL 9 mg/dL
== END 2020-08-22 09:49 | disposition home or self-care (01) ==
LOC: LAB 09:48
PROVIDERS: ATTEND Physician Assistant
DX: Z00.00 Encounter for general adult medical examination without abnormal findings (principal); I10 Essential (primary) hypertension
CPT/HCPCS: 36415; 80053; 80061; 83721; 85025

== ENCOUNTER 2021-03-16 09:50 | Outpatient (CLI) | payer OTHER, MEDICARE ==
[2021-03-16 15:29] LABS: ALBUMIN/GLOBULIN RATIO 1.7 (1.0-2.2); BILIRUBIN,TOTAL 0.5 mg/dL (0.2-1.0); CALCIUM 8.8 mg/dL (8.5-10.3); CREATININE 0.6 mg/dL (0.4-1.0); POTASSIUM 3.7 mmol/L (3.5-5.0); TOTAL PROTEIN 6.3 g/dL (6.7-8.2)
[2021-03-16 15:34] LABS: BASOPHILS % (AUTO) 0.5 %; EOSINOPHILS # (AUTO) 0.2 10^3/uL (0.0-0.7); EOSINOPHILS % (AUTO) 2.5 %; HCT - HEMATOCRIT 39.5 % (37.0-47.0); HGB - HEMOGLOBIN 12.8 g/dL (12.0-16.0); LYMPHOCYTES % (AUTO) 16.2 %; MEAN CORPUSCULAR HEMOGLOBIN 30.6 pg (27.0-31.0); MEAN CORPUSCULAR HGB CONC 32.4 g/dL (32.0-36.0); MEAN CORPUSCULAR VOLUME 94.5 fL (81.0-99.0); MEAN PLATELET VOLUME 9.8 fL (7.9-10.8); MONOCYTES # (AUTO) 0.9 10^3/uL (0.0-1.0); MONOCYTES % (AUTO) 14.3 %; NEUTROPHILS # (AUTO) 4.2 10^3/uL (1.5-6.6); PLT - PLATELET COUNT 242 10^3/uL (130-450); RED BLOOD COUNT 4.18 10^6/uL (4.20-5.40); RED CELL DISTRIBUTION WIDTH 13.2 % (12.0-15.0); WHITE BLOOD COUNT 6.4 x10^3/uL (4.8-10.8)
== END 2021-03-16 09:51 | disposition home or self-care (01) ==
LOC: LAB.S 09:50
PROVIDERS: ATTEND Internal Medicine
DX: R10.9 Unspecified abdominal pain (principal)
CPT/HCPCS: 36415; 80053; 83690; 85025

== ENCOUNTER 2021-05-04 08:50 | Outpatient (CLI) | payer OTHER, MEDICARE ==
[2021-05-04] MEDS ORDERED: MORPHINE 2 MG/ML CARPUJECT ONE (11:16)
[2021-05-04] MEDS ORDERED: SINCALIDE 1 MCG in SODIUM CHLORIDE 0.9% 50 ML IV ONE (13:29)
--- NOTE | 2021-05-04 15:09 | Nuclear Medicine Report ---
PROCEDURE: Hepatobiliary HIDA w/ Rx INDICATIONS: BILIARY COLIC RADIOPHARMACEUTICAL: 5.07 mCi Tc-99m meprofenin i.v. and 1.0 g sincalide i.v. TECHNIQUE: Following intravenous administration of Tc-99m meprofenin, sequential anterior abdominal images were obtained through 60 minutes. To evaluate the contractile response of the gallbladder in response to Cholecystokinin (CCK), 1.0 microgram sincalide (0.02 g/kg) was administered by slow intr avenous infusion approximately 60 minutes after the administration of the radiopharmaceutical. Seque ntial imaging was continued for 30 minutes after the start of CCK infusion. Gallbladder ejection fra ction was calculated. COMPARISON: Ultrasound abdomen, 02/25/2020. FINDINGS: Biliary scan: There is normal tracer uptake and excretion by the liver. There is normal visualizati on of the intrahepatic ducts, common bile duct, and gallbladder. There is normal tracer transit into the duodenum. CCK stimulation: There is poor contractile response of the gallbladder to CCK infusion. The calcula jose gallbladder ejection fraction is 28%; normal values are above 35%. The patient reports abdominal cramping during CCK infusion. IMPRESSION: 1. Normal biliary imaging study. 2. Poor contractile response of gallbladder to CCK infusion consistent with gallbladder dyskinesia. Reviewed by: Angelica Clemons MD on 05/04/2021 3:08 PM PST Approved by: Angelica Clemons MD on 05/04/2021 3:08 PM PST Station ID: [id number]
== END 2021-05-04 08:51 | disposition home or self-care (01) ==
LOC: DI 08:50
PROVIDERS: ATTEND Surgery
DX: K80.50 Calculus of bile duct without cholangitis or cholecystitis without obstruction (principal); R93.3 Abnormal findings on diagnostic imaging of other parts of digestive tract
CPT/HCPCS: 78227; J7040

== ENCOUNTER 2022-01-19 10:09 | Outpatient (CLI) | payer OTHER, MEDICARE ==
[2022-01-19 15:03] LABS: BASOPHILS % (AUTO) 0.4 %; EOSINOPHILS # (AUTO) 0.1 10^3/uL (0.0-0.7); EOSINOPHILS % (AUTO) 2.4 %; HCT - HEMATOCRIT 41.1 % (37.0-47.0); HGB - HEMOGLOBIN 13.8 g/dL (12.0-16.0); LYMPHOCYTES # (AUTO) 1.1 10^3/uL (1.5-3.5); LYMPHOCYTES % (AUTO) 20.6 %; MEAN CORPUSCULAR HEMOGLOBIN 31.5 pg (27.0-31.0); MEAN CORPUSCULAR HGB CONC 33.6 g/dL (32.0-36.0); MEAN CORPUSCULAR VOLUME 93.8 fL (81.0-99.0); MEAN PLATELET VOLUME 9.6 fL (7.9-10.8); MONOCYTES % (AUTO) 18.7 %; NEUTROPHILS # (AUTO) 3.1 10^3/uL (1.5-6.6); NEUTROPHILS % (AUTO) 57.7 %; PLT - PLATELET COUNT 227 10^3/uL (130-450); RED BLOOD COUNT 4.38 10^6/uL (4.20-5.40); WHITE BLOOD COUNT 5.3 x10^3/uL (4.8-10.8)
[2022-01-19 15:23] LABS: ALBUMIN 4.3 g/dL (3.2-5.5); ALBUMIN/GLOBULIN RATIO 1.5 (1.0-2.2); ALKALINE PHOSPHATASE 63 IU/L (42-121); ALT ALANINE AMINOTRANSFERASE 18 IU/L (10-60); AST ASPARTATE AMINOTRANSFERASE 22 IU/L (10-42); BILIRUBIN,TOTAL 0.5 mg/dL (0.2-1.0); BUN - BLOOD UREA NITROGEN 15 mg/dL (6-20); CALCIUM 9.2 mg/dL (8.5-10.3); CARBON DIOXIDE - CO2 31 mmol/L (21-32); CHLORIDE 98 mmol/L (101-111); CHOL/HDL RATIO 3.9 (<4.4); CHOLESTEROL 243 mg/dL; CREATININE 0.6 mg/dL (0.4-1.0); GFR - MDRD 95 (>89); GLUCOSE 89 mg/dL (70-100); HDL CHOLESTEROL 62 mg/dL; LDL CHOLESTEROL,CALCULATED 173 mg/dL; LDL/HDL RATIO 2.8 (<4.4); POTASSIUM 3.7 mmol/L (3.5-5.0); SODIUM 136 mmol/L (135-145); TOTAL PROTEIN 7.1 g/dL (6.7-8.2); TRIGLYCERIDES 42 mg/dL; VLDL CHOLESTEROL 8 mg/dL
[2022-01-19 15:37] LABS: THYROID STIMULATING HORMONE 2.26 uIU/mL (0.34-5.60)
== END 2022-01-19 10:10 | disposition home or self-care (01) ==
LOC: LAB.S 10:09
PROVIDERS: ATTEND Registered Nurse
DX: Z79.899 Other long term (current) drug therapy (principal); Z13.220 Encounter for screening for lipoid disorders; Z13.29 Encounter for screening for other suspected endocrine disorder
CPT/HCPCS: 36415; 80053; 80061; 83721; 84443; 85025

== ENCOUNTER 2022-01-29 13:14 | Outpatient (CLI) | payer OTHER, MEDICARE ==
--- NOTE | 2022-01-29 16:57 | Ultrasound Report ---
PROCEDURE: Duplex Ext Veins Right INDICATIONS: SWELLING RIGHT LEG TECHNIQUE: Real-time imaging, as well as color and pulse Doppler interrogation, were performed of the lower extr emity deep veins from the inguinal ligament to the popliteal fossa. COMPARISON: None. FINDINGS: The deep veins are normally compressible, and free of intraluminal thrombus. Color and pu lse Doppler demonstrate normal phasic intraluminal flow. There is normal augmentation response to di stal compression maneuver. At the area of interest in the right lateral ankle soft tissue, no sonographic abnormality identified IMPRESSION: No evidence of deep venous thrombosis, right lower extremity Reviewed by: Maykel Adams MD on 01/29/2022 3:56 PM DORIS Approved by: Maykel Adams MD on 01/29/2022 3:56 PM DORIS Station ID: [id number]
== END 2022-01-29 13:15 | disposition home or self-care (01) ==
LOC: DI 13:14
PROVIDERS: ATTEND Physician Assistant Medical
DX: R22.41 Localized swelling, mass and lump, right lower limb (principal)

== ENCOUNTER 2022-10-20 15:15 | Emergency (ER) | payer OTHER, MEDICARE ==
[2022-10-20 16:19] LABS: BASOPHILS % (AUTO) 0.1 %; EOSINOPHILS % (AUTO) 0.1 %; HCT - HEMATOCRIT 39.7 % (37.0-47.0); HGB - HEMOGLOBIN 13.3 g/dL (12.0-16.0); LYMPHOCYTES # (AUTO) 0.5 10^3/uL (1.5-3.5); LYMPHOCYTES % (AUTO) 5.9 %; MEAN CORPUSCULAR HEMOGLOBIN 30.5 pg (27.0-31.0); MEAN CORPUSCULAR HGB CONC 33.5 g/dL (32.0-36.0); MEAN CORPUSCULAR VOLUME 91.1 fL (81.0-99.0); MEAN PLATELET VOLUME 8.9 fL (7.9-10.8); MONOCYTES # (AUTO) 0.6 10^3/uL (0.0-1.0); MONOCYTES % (AUTO) 6.5 %; NEUTROPHILS # (AUTO) 7.8 10^3/uL (1.5-6.6); PLT - PLATELET COUNT 243 10^3/uL (130-450); RED BLOOD COUNT 4.36 10^6/uL (4.20-5.40); WHITE BLOOD COUNT 8.9 x10^3/uL (4.8-10.8)
[2022-10-20 16:34] LABS: ALBUMIN 3.9 g/dL (3.2-5.5); ALBUMIN/GLOBULIN RATIO 1.2 (1.0-2.2); BILIRUBIN,TOTAL 0.4 mg/dL (0.2-1.0); CALCIUM 8.8 mg/dL (8.5-10.3); CREATININE 0.6 mg/dL (0.4-1.0); POTASSIUM 3.6 mmol/L (3.5-5.0); TOTAL PROTEIN 7.1 g/dL (6.7-8.2)
--- NOTE | 2022-10-20 17:01 | ED Physician Documentation ---
PD HPI SYNCOPE - Stated complaint Stated Complaint: FALL/BLACKED OUT - Chief complaint Chief Complaint: Trauma Hd/Nk - History obtained from History obtained from: Patient - History of Present Illness Witnessed: Witnessed (her says he was looking out window as she was walking up the lawn and lost sight of her for a moment between windows but saw that she was walking okay then was on the ground. Got up after few moments. He went out and helped her and she was oriented and conversant but seemed slightly dazed.) Timing - onset: How many hours ago (1), Today (she was walking up slight incline of [place] and sayd she felt briefly lightheaded prior to apparent syncope. She remembers walking toward decorative stones and then was on ground with brief lightheaded prior.) Duration: Seconds Preceding symptoms: No: Chest pain, Dyspnea, Nausea / vomiting Associated symptoms: No: Headache, Chest pain, Palpitations, Dyspnea, Nausea / vomiting Contributing factors: No: Recent med change, Decreased PO intake Injury occurred: Fell, Head injury (left side) Review of Systems Constitutional: denies: Fever, Chills Cardiac: denies: Chest pain / pressure, Palpitations Respiratory: denies: Dyspnea, Cough GI: denies: Abdominal Pain, Vomiting, Diarrhea Musculoskeletal: denies: Neck pain, Back pain PD PAST MEDICAL HISTORY - Past Medical History Cardiovascular: Hypertension Respiratory: COPD : Other - Past Surgical History Past Surgical History: Yes General: Appendectomy, 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 HEENT: Cataracts - Present Medications Home Medications: Ambulatory Orders Medication Instructions Recorded Confirmed Beclomethasone 80 Mcg [Qvar 80] 06/23/17 Cholestyramine [Questran] 4 gm PO BID PRN #20 packet 06/23/17 Doxazosin [Cardura] 8 mg PO DAILY PM 06/23/17 Famotidine 20 mg PO BID 06/23/17 Furosemide 40 mg PO DAILY 06/23/17 Quinapril HCl 06/23/17 amLODIPine [Norvasc] 5 mg PO DAILY 06/23/17 atenoloL [Atenolol] 50 mg PO DAILY 06/23/17 Albuterol 2.5 mg INH Q4H PRN #30 neb 07/02/19 predniSONE [Prednisone] 60 mg PO DAILY #15 tablet 07/02/19 Doxycycline Hyclate 100 mg PO BID #14 capsule 08/06/19 predniSONE [Deltasone] 20 mg PO [id number] #21 tab 08/06/19 - Allergies Allergies/Adverse Reactions: Allergies Allergy/AdvReac Type Severity Reaction Status Date / Time aluminum Allergy Unknown Verified 10/20/22 15:36 amoxicillin Allergy Anaphylaxis Verified 10/20/22 15:36 chocolate flavor Allergy Unknown Verified 10/20/22 15:36 hydrochlorothiazide Allergy Unknown Verified 10/20/22 15:36 lansoprazole [From Prevacid] Allergy Unknown Verified 10/20/22 15:36 Penicillins Allergy Anaphylaxis Verified 10/20/22 15:36 - Social History Does the pt smoke?: No Smoking Status: Never smoker Does the pt drink ETOH?: No Does the pt have substance abuse?: No - Immunizations Immunizations are current?: Yes PD ED PE NORMAL - Vitals Vital signs reviewed: Yes - General General: Alert and oriented X 3, No acute distress, Well developed/nourished - HEENT HEENT: Other (some scalp tenderness left parietal area. Left cheek with some tenderness. No bony deformity. ) - Neck Neck: Supple, no meningeal sign, No bony TTP, No adenopathy - Cardiac Cardiac: RRR, No murmur - Respiratory Respiratory: Clear bilaterally - Abdomen Abdomen: Soft, Non tender - Derm Derm: Normal color, Warm and dry - Extremities Extremities: Normal ROM s pain, No edema, Other (small bruising anterior knee right. No effusion. Good full ROM of knee. ) - Neuro Neuro: Alert and oriented X 3, staging technician 2-12 intact, No motor deficit, No sensory deficit, Normal speech Eye Opening: Spontaneous Motor: Obeys Commands Verbal: Oriented GCS Score: 15 Results - Vitals Vitals: Oxygen O2 Source Room air - EKG (time done) 16:51 EKG releavant findings:: EKG personally interpreted by author of this note. Relevant findings are: Rate: Rate (enter#) (63) Rhythm: NSR, Other (artifact on baseline in inferior leads. ) [place]: Normal Intervals: Normal [place] QRS: Normal Ischemia: Normal ST segments. No: ST elevation c/w ischemia, ST depression - Labs Labs: Laboratory Tests 10/20/22 10/20/22 10/20/22 16:15 16:15 16:15 WBC 8.9 RBC 4.36 Hgb 13.3 Hct 39.7 MCV 91.1 MCH 30.5 MCHC 33.5 RDW 13.0 Plt Count 243 MPV 8.9 Neut # (Auto) 7.8 H Lymph # (Auto) 0.5 L [place] # (Auto) 0.6 Eos # (Auto) 0.0 Baso # (Auto) 0.0 Absolute Nucleated RBC 0.00 Nucleated RBC % 0.0 Sodium 133 L Potassium 3.6 Chloride 96 L Carbon Dioxide 29 Anion Gap 8.0 BUN 16 Creatinine 0.6 Estimated GFR (MDRD) 95 Glucose 121 H Calcium 8.8 Total Bilirubin 0.4 AST 21 ALT 14 Alkaline Phosphatase 75 Troponin I High Sens 5.2 Total Protein 7.1 Albumin 3.9 Globulin 3.2 Albumin/Globulin Ratio 1.2 Lipase 48 - Rads (name of study) head CT Relevant Findings:: Prelim report reviewed (no acute process), See rad report cervical CT Relevant Findings:: Prelim report reviewed (no fractures. ), See rad report PD Medical Decision Making - ED course Complexity details: re-evaluated patient, considered differential (unclear if she had syncopal episode with fall. No noted dspnea, CP, other problems. states brief lightheaded prior thugh just for second or two. She did hit head when fell, so consider mechanical trip and mild concussive syndrom to account for symptoms. ), d/w patient Departure - Departure Disposition: 01 Home, Self Care Clinical Impression: Fall, Syncope, Head contusion, Mild concussion Condition: Stable Record reviewed to determine appropriate education?: Yes Instructions: ED Concussion, ED Fainting Unkn Cause Follow-Up: Kathia Bone MD [Primary Care Provider] - Comments: Your EKG and heart monitor and blood pressure are good. Your basic blood tests are normal without any anemia or electrolyte problems or blood sugar abnormality. Blood test called troponin is negative which would let us know there is no signs of heart attack in combination with the EKG. It is unclear the cause of your apparent fainting episode. Your symptoms could also be suggestive of a mild concussion given that you did strike your head and have a little unsteadiness still. Your head CT is normal without any signs of bleeding swelling or fractures. I would see if symptoms just improve over the next day or 2. Use your walker or the walker at home to help with steadiness over the next couple of days until improving. Otherwise continue usual medications. Tylenol if needed for pains or headache. Stay well-hydrated. Follow-up with your primary care if not improved fully over the next few days. Discharge Date/Time: 10/20/22 19:10
--- NOTE | 2022-10-20 18:14 | CT Report ---
PROCEDURE: HEAD WO INDICATIONS: fall and struck head, ? LOC TECHNIQUE: Noncontrast 4.5 mm thick angled axial sections acquired from the foramen magnum to the vertex. For r adiation dose reduction, the following was used: automated exposure control, adjustment of mA and/or kV according to patient size. COMPARISON: None. FINDINGS: Image quality: Excellent. CSF spaces: Basal cisterns are patent. No extra-axial fluid collections. Ventricles are normal in size and shape. Brain: No midline shift. No intracranial masses or hemorrhage. No mass effect. [place]ier[place]-white matter in terface is normal. There cerebral volume loss for age with resultant ventricular and sulcal prominenc e. There are periventricular and deep white matter chronic small vessel ischemic changes. Atheroscler otic calcifications are noted in the intracranial segments of the bilateral internal carotid arteries . Skull and face: Calvarium and visualized facial bones are intact, without suspicious lesions. Sinuses: Visualized sinuses and mastoids are clear. IMPRESSION: CT head without acute intracranial abnormalities. No acute calvarial fracture. Age-related senescent changes and sequela of chronic small vessel ischemic disease. Reviewed by: Dwight Spivey MD on 10/20/2022 6:13 PM PDT Approved by: Dwight Spivey MD on 10/20/2022 6:13 PM PDT Station ID: [id number]
--- NOTE | 2022-10-20 18:16 | CT Report ---
PROCEDURE: CERVICAL SPINE WO INDICATIONS: fall, struck head TECHNIQUE: Noncontrast 3 mm thick sections acquired from the skull base to the T4 level. Sagittal and coronal r eformats were then constructed. For radiation dose reduction, the following was used: automated exp osure control, adjustment of mA and/or kV according to patient size. COMPARISON: None. FINDINGS: Image quality: Excellent. Bones: No acute fractures or dislocations. No acute compression fractures of the vertebral bodies. Craniocervical junction is intact. C1-C2 relationship is preserved. Visualized superior ribs are inta ct. Moderate multilevel cervical spondylosis. Soft tissues: Prevertebral soft tissues are normal in thickness. No paravertebral hematomas. No ap ical pneumothoraces. IMPRESSION: CT cervical spine without acute fracture or traumatic malalignment. Multilevel cervical spondylosis. Reviewed by: wDight Spivey MD on 10/20/2022 6:15 PM PDT Approved by: Dwight Spivey MD on 10/20/2022 6:15 PM PDT Station ID: [id number]
[2022-10-20 19:11] VITALS: BP 174/100
== END 2022-10-20 19:10 | disposition home or self-care (01) ==
LOC: ED 15:15
DX: S06.0X0A Concussion without loss of consciousness, initial encounter (principal); W18.30XA Fall on same level, unspecified, initial encounter; I10 Essential (primary) hypertension
CPT/HCPCS: 36415; 80053; 83690; 84484; 85025; 93005; 99284

== ENCOUNTER 2022-10-21 18:37 | Outpatient (CLI) | payer OTHER, MEDICARE ==
--- NOTE | 2022-10-22 11:02 | XRAY Report ---
PROCEDURE: Hip w/Pelvis 2-3V RT INDICATIONS: PAIN IN RIGHT HIP,VARICOSE VEINS OF BILATERAL LEGS TECHNIQUE: AP pelvis with lateral view(s) of the 2 hip(s). COMPARISON: None. FINDINGS: Bones: No fractures or dislocations. No suspicious bony lesions. Nonuniform joint space narrowing with osteophytosis and subchondral cystic change, without bony deformity. Nonuniform joint space alondra rowing of the left hip, with osteophytosis but no significant subchondral cysts. Soft tissues: No suspicious soft tissue calcifications or masses. 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 Kellgren-Camilo scale of osteoarthritis: 3 Reviewed by: Nicholas Weiner on 10/22/2022 11:00 AM PDT Approved by: Nicholas Weiner on 10/22/2022 11:00 AM PDT Station ID: [id number]
== END 2022-10-21 18:38 | disposition home or self-care (01) ==
LOC: DI 18:37
PROVIDERS: ATTEND Internal Medicine
DX: I83.813 Varicose veins of bilateral lower extremities with pain (principal); R22.41 Localized swelling, mass and lump, right lower limb; M16.11 Unilateral primary osteoarthritis, right hip

== ENCOUNTER 2022-12-11 16:36 | Outpatient (CLI) | payer OTHER, MEDICARE ==
--- NOTE | 2022-12-13 08:56 | MRI Report ---
PROCEDURE: BRAIN WO INDICATIONS: NEUROLOGICAL DEFICIT, BILAT TRANSIENT VISUAL LOSS TECHNIQUE: Noncontrast axial T1 spin echo, axial T2 fast spin echo, sagittal and axial FLAIR, coronal T2 fast sp in echo, axial gradient echo, axial diffusion and ADC through the brain. COMPARISON: CT head 10/20/2022 FINDINGS: Image quality: Excellent. The ventricular system and cortical sulci demonstrate atrophy, consistent for patient's stated age. There are areas of hyperintense T2/FLAIR signal in the periventricular and subcortical white matter. There is no acute intra or extra-axial fluid collection. No acute hemorrhage, mass lesion or midlin e shift. Brainstem is unremarkable. There is a punctate area of increased signal intensity within th e left thalamus on diffusion sequence. This area is equivocal for hypointense signal on ADC. In addit ion, there is a focus of relative hyperintense signal within the central oh also a cortical on ADC. Both of these regions demonstrate increased signal on FLAIR and T2 sequences. Previous area of left lacunar thalamic ischemia is present. Globes are symmetrical. Sinuses are aerated. Osseous structure s are intact. IMPRESSION: Equivocal hyperintense signal within the left thalamus as well as oh between diffusion and ADC sign al as above. While this could represent T2 shine through, late subacute focus of ischemia cannot be e xcluded and recommend correlation patient's symptoms. Atrophy and chronic microvascular ischemic changes are present. Reviewed by: Dinorah Medina MD on 12/13/2022 8:55 AM PDT Approved by: Dinorah Medina MD on 12/13/2022 8:55 AM PDT Station ID: [id number]
== END 2022-12-11 16:37 | disposition home or self-care (01) ==
LOC: DI 16:36
PROVIDERS: ATTEND Internal Medicine
DX: G31.9 Degenerative disease of nervous system, unspecified (principal); R55 Syncope and collapse; H53.123 Transient visual loss, bilateral; R29.90 Unspecified symptoms and signs involving the nervous system

== ENCOUNTER 2023-08-19 09:41 | Outpatient (CLI) | payer OTHER, MEDICARE ==
[2023-08-19 09:50] LABS: BASOPHILS % (AUTO) 0.4 %; EOSINOPHILS # (AUTO) 0.1 10^3/uL (0.0-0.7); EOSINOPHILS % (AUTO) 2.4 %; HCT - HEMATOCRIT 41.1 % (37.0-47.0); HGB - HEMOGLOBIN 13.3 g/dL (12.0-16.0); MEAN CORPUSCULAR HEMOGLOBIN 30.7 pg (27.0-31.0); MEAN CORPUSCULAR HGB CONC 32.4 g/dL (32.0-36.0); MEAN CORPUSCULAR VOLUME 94.9 fL (81.0-99.0); MEAN PLATELET VOLUME 9.2 fL (7.9-10.8); MONOCYTES % (AUTO) 20.4 %; NEUTROPHILS # (AUTO) 2.9 10^3/uL (1.5-6.6); NEUTROPHILS % (AUTO) 57.6 %; PLT - PLATELET COUNT 231 10^3/uL (130-450); RED BLOOD COUNT 4.33 10^6/uL (4.20-5.40)
[2023-08-19 10:32] LABS: ALBUMIN 4.1 g/dL (3.2-5.5); ALBUMIN/GLOBULIN RATIO 1.6 (1.0-2.2); ALKALINE PHOSPHATASE 75 IU/L (42-121); ALT ALANINE AMINOTRANSFERASE 11 IU/L (10-60); AST ASPARTATE AMINOTRANSFERASE 15 IU/L (10-42); BILIRUBIN,TOTAL 0.5 mg/dL (0.2-1.0); BUN - BLOOD UREA NITROGEN 16 mg/dL (6-20); CALCIUM 9.5 mg/dL (8.5-10.3); CARBON DIOXIDE - CO2 32 mmol/L (21-32); CHLORIDE 101 mmol/L (101-111); CHOL/HDL RATIO 3.5 (<4.4); CHOLESTEROL 210 mg/dL; CREATININE 0.6 mg/dL (0.6-1.3); GFR - MDRD 95 (>89); GLUCOSE 89 mg/dL (74-104); HDL CHOLESTEROL 60 mg/dL; LDL CHOLESTEROL,CALCULATED 135 mg/dL; LDL/HDL RATIO 2.3 (<4.4); POTASSIUM 3.6 mmol/L (3.5-4.5); SODIUM 136 mmol/L (135-145); TOTAL PROTEIN 6.6 g/dL (6.4-8.9); TRIGLYCERIDES 73 mg/dL (48-352); VLDL CHOLESTEROL 15 mg/dL
[2023-08-19 11:58] LABS: THYROID STIMULATING HORMONE 2.23 uIU/mL (0.34-5.60)
== END 2023-08-19 09:42 | disposition home or self-care (01) ==
LOC: LAB 09:41
PROVIDERS: ATTEND Registered Nurse
DX: I10 Essential (primary) hypertension (principal); Z79.899 Other long term (current) drug therapy; Z13.220 Encounter for screening for lipoid disorders
CPT/HCPCS: 36415; 80053; 80061; 83721; 84443; 85025